=== PATIENT | female | born 2000 | race Caucasian/White ===

== ENCOUNTER 2020-01-07 13:22 | Emergency (ER) | payer SELFPAY ==
--- NOTE | 2020-01-07 13:46 | EDM.PDOC ---
ED HPI GENERAL MEDICAL PROBLEM - General Chief Complaint: Abdominal Pain Stated Complaint: abdominal pain Time Seen by Provider: 01/07/20 13:30 Source of Information: Reports: Patient History Limitations: Reports: No Limitations - History of Present Illness INITIAL COMMENTS - FREE TEXT/NARRATIVE: Patient comes into the emergency department with complaint of lower abdominal discomfort. Patient states that the lower abdominal discomfort started approximately 4 to 5 hours prior to arrival to the emergency department. She describes it as a sharp cramping sensation in the lower abdomen. She states earlier today she did start her period which she normally some intermittent cramping and lower abdominal discomfort however she feels that this discomfort is more significant and severe in nature than normal. Patient also states that she did have sexual intercourse this morning with her boyfriend who she is in a monogamous relationship with. She states that it was not out of the ordinary. Patient states prior to arrival she did try to take a bath and take 4 Tylenol however neither helped her current symptoms. Patient states that if she holds her lower abdomen tight the pain and discomfort is not as severe however she tries to stretch out or move around she states that the pain does intensify. Patient denies any fever, shortness of breath, dizziness, lightheadedness, nausea, vomiting. Patient also denies any history of abdominal disorders or surgery/trauma. Onset: Sudden Quality: Reports: Other Severity: Mild Improves with: Reports: None Worsens with: Reports: None Associated Symptoms: Reports: No Other Symptoms Treatments PUBLIC RELATIONS ANALYST: Reports: Acetaminophen Lower Abdomen Pain Score (Numeric/FACES): 8 - Related Data Allergies Allergy/AdvReac Type Severity Reaction Status Date / Time morphine Allergy Vomiting Verified 01/07/20 13:29 Home Meds: Home Meds . [No Known Home Meds] 01/07/20 [History] Past Medical History Gastrointestinal History: Reports: Cholelithiasis - Past Surgical History HEENT Surgical History: Reports: Adenoidectomy, Myringotomy w Tube(s), Tonsillectomy GI Surgical History: Reports: Cholecystectomy Social & Family History - Tobacco Use Tobacco Use Status *Q: Unknown Ever Used Tobacco ED ROS GENERAL - Review of Systems Review Of Systems: Comprehensive ROS is negative, except as noted in HPI. Constitutional: Reports: No Symptoms HEENT: Reports: No Symptoms Respiratory: Reports: No Symptoms Cardiovascular: Reports: No Symptoms Endocrine: Reports: No Symptoms : Reports: No Symptoms Musculoskeletal: Reports: No Symptoms Skin: Reports: No Symptoms Neurological: Reports: No Symptoms Psychiatric: Reports: No Symptoms Hematologic/Lymphatic: Reports: No Symptoms Immunologic: Reports: No Symptoms ED EXAM, GENERAL - Physical Exam Exam: See Below Exam Limited By: No Limitations General Appearance: Alert, WD/WN, No Apparent Distress Head: Atraumatic, Normocephalic Neck: Normal Inspection, Supple, Non-Tender, Full Range of Motion Respiratory/Chest: No Respiratory Distress, Lungs Clear, Normal Breath Sounds, No Accessory Muscle Use, Chest Non-Tender Cardiovascular: Normal Peripheral Pulses, Regular Rate, Rhythm, No Edema GI/Abdominal: Normal Bowel Sounds, Soft, No Organomegaly, No Mass, Pelvis Stable, Guarding Back Exam: Normal Inspection, Full Range of Motion Extremities: Normal Inspection, Normal Range of Motion, Non-Tender, Normal Capillary Refill Neurological: Alert, Oriented, Normal Gait Psychiatric: Normal Affect, Normal Mood Skin Exam: Warm, Dry, Intact, Normal Color Course - Vital Signs Last Recorded V/S: Last Vital Signs Temp 36.5 C 01/07/20 13:24 Pulse 95 01/07/20 13:24 Resp 18 01/07/20 13:24 BP 116/79 01/07/20 13:24 Pulse Ox 100 01/07/20 13:24 - Orders/Labs/Meds Labs: Laboratory Tests 01/07/20 01/07/20 01/07/20 Range/Units 13:43 13:43 13:51 WBC 12.5 H (4.0-10.0) x10^3/uL RBC 4.72 (4.00-5.50) x10^6/uL Hgb 14.3 (12.0-16.0) g/dL Hct 41.4 (33.0-47.0) % MCV 87.7 (78.0-93.0) fL MCH 30.3 (26.0-32.0) pg MCHC 34.5 (32.0-36.0) g/dL RDW Coeff of Cristi 11.7 (10.0-15.0) % Plt Count 253 (130-400) x10^3/uL Neut % (Auto) 77.9 (50.0-80.0) % Lymph % (Auto) 14.0 L (25.0-50.0) % [place] % (Auto) 7.2 (2.0-11.0) % Eos % (Auto) 0.7 (0.0-4.0) % Baso % (Auto) 0.2 (0.2-1.2) % Sodium (136-145) mmol/L Potassium (3.5-5.1) mmol/L Chloride (98-107) mmol/L Carbon Dioxide (21-32) mmol/L Anion Gap (10-20) mmol/L BUN (7-18) mg/dL Creatinine (0.55-1.02) mg/dL Est Cr Clr Drug Dosing Estimated GFR (MDRD) Glucose (74-106) mg/dL Calcium (8.5-10.1) mg/dL Corrected Calcium (8.5-10.1) mg/dL Total Bilirubin (0.2-1.0) mg/dL AST (15-37) U/L ALT (14-59) U/L Alkaline Phosphatase (46-116) U/L Total Protein (6.4-8.2) g/dL Albumin (3.4-5.0) g/dL Globulin Albumin/Globulin Ratio Urine Color Yellow (YELLOW) Urine Appearance Clear (CLEAR) Urine pH 8.5 H (5.0-8.0) Ur Specific [place] 1.020 Urine Protein Trace H (NEGATIVE) mg/dL Urine Glucose (UA) Negative (NEGATIVE) mg/dL Urine Ketones Negative (NEGATIVE) mg/dL Urine Occult Blood Small H (NEGATIVE) Urine Nitrite Negative (NEGATIVE) Urine Bilirubin Negative (NEGATIVE) Urine Urobilinogen 0.2 (0.2) EU/dL Ur Leukocyte Esterase Negative (NEGATIVE) U Hyaline Cast (Auto) Rare Urine RBC 0-5 (NOT SEEN) /HPF Urine WBC 0-5 (NOT SEEN) /HPF Ur Squamous Epith Cells Rare (NEGATIVE) /HPF Urine Bacteria Not seen (NEGATIVE) /HPF Urine Mucus Few H (NEGATIVE) /LPF Urine HCG, Qual Negative (NEGATIVE) 01/07/20 Range/Units 13:51 WBC (4.0-10.0) x10^3/uL RBC (4.00-5.50) x10^6/uL Hgb (12.0-16.0) g/dL Hct (33.0-47.0) % MCV (78.0-93.0) fL MCH (26.0-32.0) pg MCHC (32.0-36.0) g/dL RDW Coeff of Cristi (10.0-15.0) % Plt Count (130-400) x10^3/uL Neut % (Auto) (50.0-80.0) % Lymph % (Auto) (25.0-50.0) % [place] % (Auto) (2.0-11.0) % Eos % (Auto) (0.0-4.0) % Baso % (Auto) (0.2-1.2) % Sodium 138 (136-145) mmol/L Potassium 3.6 (3.5-5.1) mmol/L Chloride 104 (98-107) mmol/L Carbon Dioxide 27 (21-32) mmol/L Anion Gap 10.6 (10-20) mmol/L BUN 10 (7-18) mg/dL Creatinine 1.0 (0.55-1.02) mg/dL Est Cr Clr Drug Dosing TNP Estimated GFR (MDRD) > 60 Glucose 89 (74-106) mg/dL Calcium 8.8 (8.5-10.1) mg/dL Corrected Calcium 8.88 (8.5-10.1) mg/dL Total Bilirubin 0.5 (0.2-1.0) mg/dL AST 11 L (15-37) U/L ALT 20 (14-59) U/L Alkaline Phosphatase 69 (46-116) U/L Total Protein 7.0 (6.4-8.2) g/dL Albumin 3.9 (3.4-5.0) g/dL Globulin 3.1 Albumin/Globulin Ratio 1.26 Urine Color (YELLOW) Urine Appearance (CLEAR) Urine pH (5.0-8.0) Ur Specific [place] Urine Protein (NEGATIVE) mg/dL Urine Glucose (UA) (NEGATIVE) mg/dL Urine Ketones (NEGATIVE) mg/dL Urine Occult Blood (NEGATIVE) Urine Nitrite (NEGATIVE) Urine Bilirubin (NEGATIVE) Urine Urobilinogen (0.2) EU/dL Ur Leukocyte Esterase (NEGATIVE) U Hyaline Cast (Auto) Urine RBC (NOT SEEN) /HPF Urine WBC (NOT SEEN) /HPF Ur Squamous Epith Cells (NEGATIVE) /HPF Urine Bacteria (NEGATIVE) /HPF Urine Mucus (NEGATIVE) /LPF Urine HCG, Qual (NEGATIVE) Departure - Departure Time of Disposition: 14:45 Disposition: Home, Self-Care 01 Condition: Good Clinical Impression: Severe menstrual cramps - Discharge Information *PRESCRIPTION DRUG MONITORING PROGRAM REVIEWED*: Not Applicable *COPY OF PRESCRIPTION DRUG MONITORING REPORT IN PATIENT PETER: Not Applicable Instructions: Abdominal Pain, Adult, [id number], Dysmenorrhea, [id number] Forms: ED Department Discharge Additional Instructions: 1. rest 2. increase your water intake 3. Continue all at home medications 4. Activity and diet as tolerated 5. Can take over the counter Tylenol for any pain or discomfort 6. Follow up with PCP or return if symptoms continue, return, or progress 7. Call with any questions or concerns 8. Use heating pad over the lower abdominal to help with cramping Sepsis Event Note (ED) - Evaluation Sepsis Screening Result: No Definite Risk - Focused Exam Vital Signs: Vital Signs Temp Pulse Resp BP Pulse Ox 01/07/20 13:24 36.5 C 95 18 116/79 100 - Assessment/Plan Assessment:: 1. abdominal pain 2. menstrual cramps Plan: 1. Labs completed in the ER. Results reviewed with the patient 2. CT scan completed in the ER. Results reviewed with the patient 3. UA/UC completed in ER 4. Urine completed 5. Zofran offered in the ER to help with any nausea. Pt denies needing any right now. 6. Toradol IM given to help with pain and discomfort 7. Patient and nursing staff was updated regarding the plan of care 8. Patient and family are agreeable to the above plan of care 9. All questions and concerns were addressed with the patient and family prior to discharge
[2020-01-07 14:15] LABS: CHLORIDE,CL 104 mmol/L (98-107); SODIUM,NA 138 mmol/L (136-145)
[2020-01-07 14:16] LABS: ANION GAP 10.6 mmol/L (10-20)
--- NOTE | 2020-01-07 14:34 | CT ---
[id number] CT/CT Abdomen Pelvis WO IV EXAM: CT Abdomen Pelvis WO IV CLINICAL DATA: ABDOMEN PAIN,PELVIC PAIN. COMPARISON STUDY: None. FINDINGS: Lung bases are clear. The gallbladder is surgically absent. The liver, spleen, pancreas, adrenal glands and kidneys are unremarkable. No bowel obstruction or inflammation. The appendix is visualized and appears normal. No lymphadenopathy, free fluid, or pneumoperitoneum. Small amount of free fluid within the pelvis likely physiologic in nature. The urinary bladder is underdistended. Scattered changes of spondylosis the spine. No fracture or osseous lesion. IMPRESSION: No acute CT findings within the abdomen or pelvis to explain the patient's symptoms. Candido Yoo DO 01/07/20 [id number] Thank you for allowing us to participate in the care of your patient.
[2020-01-07] MEDS ORDERED: Ketorolac 30 MG/ML SDV IM ONE (14:35)
== END 2020-01-07 14:50 | disposition home or self-care (01) ==
LOC: VM.ED 13:22
DX: N94.6 Dysmenorrhea, unspecified (principal); Z88.5 Allergy status to narcotic agent; Z90.49 Acquired absence of other specified parts of digestive tract
CPT/HCPCS: 36415; 74176; 80053; 81001; 81025; 85025; 96372; 99283; 99284-25; J1885

== ENCOUNTER 2020-03-01 20:13 | Emergency (ER) | payer MEDICAID ==
[2020-03-01] MEDS ORDERED: Bupivacaine 0.25% 30 ML SDV INJECT PRN (20:26)
[2020-03-01] MEDS ORDERED: Take Home: Amoxicillin 875 MG Tab, 2 Tab Pack PO ONE (20:26)
[2020-03-01] MEDS ORDERED: Take Home: Acetaminophen/HYDROcodone 325-5 MG, 5 Tab Pack PO ONE (20:27)
--- NOTE | 2020-03-01 20:45 | EDM.PDOC ---
ED HPI GENERAL MEDICAL PROBLEM - General Stated Complaint: TOOTH PAIN Time Seen by Provider: 03/01/20 20:23 Source of Information: Reports: Patient - History of Present Illness INITIAL COMMENTS - FREE TEXT/NARRATIVE: Angelica is a 20 y/o female who comes to the ER with dental pain. Patient reports that she woke up this AM with pain in her left lower molar region. No fever. Has not taken anything for pain or tried to call a dentist today. She is unsure when her tooth broke. She is very anxious about having to go to the dentist. - Related Data Allergies Allergy/AdvReac Type Severity Reaction Status Date / Time morphine Allergy Vomiting Verified 01/07/20 13:29 Home Meds: Home Meds Amoxicillin 875 mg PO BID 6 Days #10 tablet 03/01/20 [Rx] Lidocaine 2% [Xylocaine 2% Viscous] 15 ml PO ASDIRECTED 7 Days #15 ml 03/01/20 [Rx] Past Medical History Gastrointestinal History: Reports: Cholelithiasis - Past Surgical History HEENT Surgical History: Reports: Adenoidectomy, Myringotomy w Tube(s), Tonsillectomy GI Surgical History: Reports: Cholecystectomy Review of Systems - Review of Systems Review Of Systems: See Below Constitutional: Reports: No Symptoms Eyes: Reports: No Symptoms Ears: Reports: No Symptoms Nose: Reports: No Symptoms Mouth/Throat: Reports: Pain Respiratory: Reports: No Symptoms Cardiovascular: Reports: No Symptoms GI/Abdominal: Reports: No Symptoms Genitourinary: Reports: No Symptoms Musculoskeletal: Reports: No Symptoms Skin: Reports: No Symptoms Neurological: Reports: No Symptoms Psychiatric: Reports: No Symptoms ED EXAM, GENERAL - Physical Exam Exam: See Below General Appearance: Alert, WD/WN, No Apparent Distress (Adult female, appears to be in pain.) Eye Exam: Bilateral Eye: PERRL Ears: Hearing Grossly Normal Nose: Normal Inspection, Normal Mucosa Throat/Mouth: Normal Lips, Normal Voice, Other (Tooth number 18 is broken and tender to touch, no abscess noted) Head: Atraumatic, Normocephalic Neck: Normal Inspection Respiratory/Chest: No Respiratory Distress GI/Abdominal: Soft (Female) Exam: Deferred Rectal (Female) Exam: Deferred Extremities: Normal Inspection, Normal Range of Motion, Normal Capillary Refill Neurological: Alert, Oriented, CN II-XII Intact, Normal Gait Psychiatric: Normal Affect, Normal Mood Skin Exam: Warm, Dry, Intact, Normal Color Lymphatic: No Adenopathy Course - Vital Signs Text/Narrative:: 2022 The patient was seen by the ANALYTICAL LABORATORY TECHNICIAN. Dental block was done. See Procedure note below. Questions were answered. She was given discharge instructions and left the ER in stable condition. PROCEDURE NOTE: DENTAL BLOCK Consent for operation or procedure: Risks and benefits discussed with patient and consent obtained. Risks include facial paralysis, hematoma, and trismus (spasm of the jaw muscle). Benefits include pain control. Bupivicaine 0.25%- 4 ml The distribution of the inferior alveolar nerve was identified. Bupivicaine was injected into that region. A short time later adequate analgesia was obtained. Estimated Blood Loss: minimal Complications: The patient tolerated the procedure well without complications. - Orders/Labs/Meds Orders: Active Orders 24 hr Category Date Time Status Bupivacaine 0.25% [Marcaine 0.25%] Med 03/01/20 20:26 Ordered 30 ml INJECT ASDIRECTED PRN Medication Orders Bupivacaine HCl (Marcaine 0.25%) 30 ml INJECT ASDIRECTED PRN PRN Reason: Other Meds: Medications Generic Name Dose Route Start Last Admin Trade Name Freq PRN Reason Stop Dose Admin Bupivacaine HCl 30 ml 03/01/20 20:26 Marcaine 0.25% INJECT ASDIRECTED PRN Other Discontinued Medications Generic Name Dose Route Start Last Admin Trade Name Freq PRN Reason Stop Dose Admin Hydrocodone Bitart/Acetaminophen 2 packet 03/01/20 20:27 Take Home: Acetam/Hydrocodon 325-5 Mg, 5 Pack PO 03/01/20 20:28 ONETIME ONE Amoxicillin 2 packet 03/01/20 20:26 Take Home: Amoxicillin 875 Mg Tab, 2 Tab Pack PO 03/01/20 20:27 ONETIME ONE Departure - Departure Time of Disposition: 20:45 Disposition: 20 Condition: Good Clinical Impression: Pain, dental Broken tooth Qualifiers: Encounter type: initial encounter Fracture type: closed Qualified Code(s): S02.5XXA - Fracture of tooth (traumatic), initial encounter for closed fracture - Discharge Information Prescriptions: Amoxicillin 875 mg PO BID 6 Days #10 tablet Lidocaine 2% [Xylocaine 2% Viscous] 15 ml PO ASDIRECTED 7 Days #15 ml Instructions: Acute Pain, Adult, Dental Extraction, Care After, [id number] - My Orders Last 24 Hours: My Active Orders 03/01/20 20:26 Bupivacaine 0.25% [Marcaine 0.25%] 30 ml INJECT ASDIRECTED PRN - Assessment/Plan Last 24 Hours: My Active Orders 03/01/20 20:26 Bupivacaine 0.25% [Marcaine 0.25%] 30 ml INJECT ASDIRECTED PRN Assessment:: 1)Dental Pain 2)Broken Tooth Plan: -Amoxicillin 875mg oral twice daily x 7 days #2 (ER)#12 (Rx) -Hydrocodone/APAP 5-325mg 1-2 tablets oral every 4-6 hours as needed for severe pain #10(ER) -Ibuprofen 200mg 4 tablets oral every 8 hours (Use over the counter meds) -Viscous Lidocaine 2%-Use a small amount to gumline as needed #15ml(ER) -Warm or cool compresses as needed -Call to make a dental exam as soon as possible -Return to the ER as needed
== END 2020-03-01 21:05 | disposition home or self-care (01) ==
LOC: VM.ED 20:13
DX: K03.81 Cracked tooth (principal); Z88.5 Allergy status to narcotic agent
CPT/HCPCS: 64400; 99282; A9270; 99283

== ENCOUNTER 2020-03-05 20:06 | Emergency (ER) | payer SELFPAY ==
[2020-03-05] MEDS: Take Home: Acetaminophen/HYDROcodone 325-5 MG, 5 Tab Pack PO ONE (20:48)
--- NOTE | 2020-03-05 23:29 | EDM.PDOC ---
ED HPI GENERAL MEDICAL PROBLEM - General Chief Complaint: ENT Problem Stated Complaint: DENTAL PAIN Time Seen by Provider: 03/05/20 20:35 Source of Information: Reports: Patient History Limitations: Reports: No Limitations - History of Present Illness INITIAL COMMENTS - FREE TEXT/NARRATIVE: PtTahmina presents to ER with complaints of L lower dental pain. She states that she went to the dentist today and was told she needs to have several teeth pulled. She was seen in ER several days ago and seen by Justa Lester NP who started the patient on antibiotics and hydrocodone. She is still on the augmentin and is out of hydrocodone. She has not attempted to have her PCP or dentist fill her hydrocodone. Denies any neck swelling. No problems swallowing. Denies any fever or chills. No chest pain or shortness of breath. 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 Pain Score (Numeric/FACES): 10 - Related Data Allergies Allergy/AdvReac Type Severity Reaction Status Date / Time morphine Allergy Vomiting Verified 03/01/20 21:43 Home Meds: Home Meds Amoxicillin 875 mg PO BID 6 Days #10 tablet 03/01/20 [Rx] Past Medical History Gastrointestinal History: Reports: Cholelithiasis - Past Surgical History HEENT Surgical History: Reports: Adenoidectomy, Myringotomy w Tube(s), Tonsillectomy GI Surgical History: Reports: Cholecystectomy Social & Family History - Tobacco Use Tobacco Use Status *Q: Current Every Day Tobacco User Years of Tobacco use: 5 Packs/Tins Daily: 1 ED ROS GENERAL - Review of Systems Review Of Systems: Comprehensive ROS is negative, except as noted in HPI. ED EXAM, GENERAL - Physical Exam Exam: See Below Exam Limited By: No Limitations General Appearance: Alert, WD/WN, No Apparent Distress Throat/Mouth: Normal Inspection, Normal Lips, Other (Poor dentition. Numerous decayed/fractured teeth noted. No obvious abscess noted. Mild anterior cervical adenopathy.) Head: Atraumatic, Normocephalic Neck: Lymphadenopathy (L), Lymphadenopathy (R) Skin Exam: Warm, Dry, Intact, Normal Color Course - Vital Signs Last Recorded V/S: Last Vital Signs Temp 36.8 C 03/05/20 20:10 Pulse 96 12/15/20 20:10 Resp 16 03/05/20 20:10 BP 126/80 03/05/20 20:10 Pulse Ox 97 03/05/20 20:10 - Orders/Labs/Meds Meds: Medications Discontinued Medications Generic Name Dose Route Start Last Admin Trade Name Anisha PRN Reason Stop Dose Admin Hydrocodone Bitart/Acetaminophen 1 packet 03/05/20 20:42 03/05/20 20:48 Take Home: Acetam/Hydrocodon 325-5 Mg, 5 Pack PO 03/05/20 20:43 1 packet ONETIME ONE Administration Departure - Departure Time of Disposition: 21:00 Disposition: Home, Self-Care 01 Clinical Impression: Pain due to dental caries - Discharge Information Instructions: Acetaminophen; Hydrocodone tablets or capsules, Dental Abscess, [id number], Benzocaine mouth gel, ointment, solution, or dental paste Referrals: PCP,None [Primary Care Provider] - Forms: ED Department Discharge Additional Instructions: Home to rest. Albert Lea 5/325mg 1 every 6 hours as needed for pain Ibuprofen 200 mg 4 tabs every 8 hours as needed for pain Follow-up tomorrow with your PCP or dentist if you need more prescription pain medication. Sepsis Event Note (ED) - Evaluation Sepsis Screening Result: No Definite Risk - Focused Exam Vital Signs: Vital Signs Temp Pulse Resp BP Pulse Ox 03/05/20 20:10 36.8 C 96 16 126/80 97 - Problem List Review Problem List Initiated/Reviewed/Updated: Yes - Assessment/Plan Plan: Pt. was given a 5 pack or norco 5/325mg. She can take one every 6 hours in addition to ibuprofen. Advised to follow-up with dentist/PCP for further prescription pain medication. All questions were answered.
== END 2020-03-05 20:57 | disposition home or self-care (01) ==
LOC: VM.ED 20:19
DX: K02.9 Dental caries, unspecified (principal); R59.0 Localized enlarged lymph nodes; F17.210 Nicotine dependence, cigarettes, uncomplicated; Z88.5 Allergy status to narcotic agent
CPT/HCPCS: 99282; 99283; A9270-GY

== ENCOUNTER 2024-07-08 12:43 | Emergency (ER) | payer SELFPAY ==
[2024-07-08] MEDS ORDERED: Sodium Chloride 0.9% 10 ML Syringe FLUSH PRN (12:49)
[2024-07-08 13:08] LABS: BASOPHILS PERCENT AUTO 0.3 % (0.2-1.2); EOSINOPHILS ABSOLUTE AUTO 0.1 x10^3/uL (0.0-0.5); EOSINOPHILS PERCENT AUTO 0.9 % (0.0-4.0); HEMATOCRIT 43.1 % (33.0-47.0); HEMOGLOBIN 15.2 g/dL (12.0-16.0); IMMATURE GRAN ABSOLUTE AUTO 0.02 x10^3/uL (0.00-0.07); LYMPHOCYTES ABSOLUTE AUTO 2.6 x10^3/uL (1.0-4.8); LYMPHOCYTES PERCENT AUTO 33.7 % (25.0-50.0); MEAN CORPUSCULAR HEMOGLOBIN 29.7 pg (26.0-32.0); MEAN CORPUSCULAR HGB CONC 35.3 g/dL (32.0-36.0); MEAN CORPUSCULAR VOLUME 84.3 fL (78.0-93.0); MONOCYTES ABSOLUTE AUTO 0.6 x10^3/uL (0.0-0.8); MONOCYTES PERCENT AUTO 7.9 % (2.0-11.0); NEUTROPHILS ABSOLUTE AUTO 4.4 x10^3/uL (1.8-7.7); NEUTROPHILS PERCENT AUTO 56.9 % (50.0-80.0); PLATELET COUNT,PLT 239 x10^3/uL (130-400); RED BLOOD CELL COUNT 5.11 x10^6/uL (4.00-5.50); WHITE BLOOD CELL COUNT,WBC 7.7 x10^3/uL (4.0-10.0)
[2024-07-08 13:13] LABS: APPEARANCE,URINE CLOUDY (CLEAR); BILIRUBIN,URINE NEGATIVE (NEGATIVE); COLOR,URINE YELLOW (YELLOW); GLUCOSE,URINE NEGATIVE (NEGATIVE); KETONES,URINE NEGATIVE (NEGATIVE); LEUKOCYTE ESTERASE,URINE LARGE (NEGATIVE); NITRITE,URINE NEGATIVE (NEGATIVE); OCCULT BLOOD,URINE SMALL (NEGATIVE); PH,URINE 7.5 (5.0-8.0); PROTEIN,URINE 30 mg/dL (NEGATIVE); UROBILINOGEN,URINE 0.2 EU/dL (0.2)
[2024-07-08 13:27] LABS: BACTERIA,URINE RARE /HPF (NOT SEEN); MUCUS,URINE NOT SEEN /LPF (NOT SEEN); RBC,URINE NOT SEEN /HPF (NOT SEEN); SQUAMOUS EPITHELIAL CELLS,UR RARE /HPF (NOT SEEN); WBC,URINE >100 /HPF (NOT SEEN)
[2024-07-08 13:29] LABS: A/G RATIO 0.97; ALANINE AMINOTRANSFERASE,ALT 18 U/L (14-59); ALBUMIN 3.4 g/dL (3.4-5.0); ALKALINE PHOSPHATASE 77 U/L (46-116); BILIRUBIN TOTAL 0.3 mg/dL (0.2-1.0); BLOOD UREA NITROGEN,BUN 6 mg/dL (7-18); CALCIUM 8.6 mg/dL (8.5-10.1); CARBON DIOXIDE,CO2 26 mmol/L (21-32); CHLORIDE,CL 101 mmol/L (98-107); CREATININE 0.7 mg/dL (0.55-1.02); GLUCOSE RANDOM 81 mg/dL (70-99); POTASSIUM,K 3.8 mmol/L (3.5-5.1); PROTEIN TOTAL,TP 6.9 g/dL (6.4-8.2); SODIUM,NA 137 mmol/L (136-145)
[2024-07-08 13:30] LABS: ANION GAP 13.8 mmol/L (5-15); ESTIMATED GFR 123 mL/min (>=60)
[2024-07-08 13:38] LABS: ASPARTATE AMNIOTRANSFERASE,AST 11 U/L (15-37)
[2024-07-08] MEDS: cefTRIAXone 2 GM Vial IVPUSH ONE (14:14)
[2024-07-08] MEDS ORDERED: Take Home: Cephalexin 500 MG Cap, 6 Cap Pack PO ONE (14:23)
== END 2024-07-08 14:38 | disposition home or self-care (01) ==
LOC: VM.ED 12:43
DX: O23.41 Unspecified infection of urinary tract in pregnancy, first trimester (principal); Z3A.11 11 weeks gestation of pregnancy; Z88.5 Allergy status to narcotic agent; Z88.8 Allergy status to other drugs, medicaments and biological substances; Z79.899 Other long term (current) drug therapy; Z90.49 Acquired absence of other specified parts of digestive tract
CPT/HCPCS: 80053; 81001; 85025; 87086; 87088; 87186; 96374; 99284; 99284-25; J0696

== ENCOUNTER 2025-02-13 20:26 | Emergency (ER) | payer SELFPAY ==
[2025-02-13] MEDS ORDERED: Sodium Chloride 0.9% 10 ML Syringe FLUSH PRN (21:03)
[2025-02-13 21:29] LABS: BASOPHILS ABSOLUTE AUTO 0.0 x10^3/uL (0.0-0.2); BASOPHILS PERCENT AUTO 0.3 % (0.2-1.2); EOSINOPHILS ABSOLUTE AUTO 0.1 x10^3/uL (0.0-0.5); EOSINOPHILS PERCENT AUTO 1.0 % (0.0-4.0); IMMATURE GRAN ABSOLUTE AUTO 0.01 x10^3/uL (0.00-0.07); IMMATURE GRAN PERCENT AUTO 0.10 % (0.00-0.43); LYMPHOCYTES ABSOLUTE AUTO 2.1 x10^3/uL (1.0-4.8); LYMPHOCYTES PERCENT AUTO 20.2 % (25.0-50.0); MONOCYTES ABSOLUTE AUTO 1.2 x10^3/uL (0.0-0.8); MONOCYTES PERCENT AUTO 11.2 % (2.0-11.0); NEUTROPHILS ABSOLUTE AUTO 6.9 x10^3/uL (1.8-7.7); NEUTROPHILS PERCENT AUTO 67.2 % (50.0-80.0); PLATELET COUNT,PLT 282 x10^3/uL (130-400); RED BLOOD CELL COUNT 4.32 x10^6/uL (4.00-5.50); WHITE BLOOD CELL COUNT,WBC 10.3 x10^3/uL (4.0-10.0)
[2025-02-13 21:30] LABS: APPEARANCE,URINE CLEAR (CLEAR); GLUCOSE,URINE NEGATIVE (NEGATIVE); OCCULT BLOOD,URINE SMALL (NEGATIVE)
[2025-02-13 21:56] LABS: SQUAMOUS EPITHELIAL CELLS,UR OCCASIONAL /HPF (NOT SEEN)
[2025-02-13 22:03] LABS: A/G RATIO 0.63; ALANINE AMINOTRANSFERASE,ALT 10 U/L (14-59); BILIRUBIN TOTAL 0.4 mg/dL (0.2-1.0); BLOOD UREA NITROGEN,BUN 6 mg/dL (7-18); CARBON DIOXIDE,CO2 25 mmol/L (21-32); CHLORIDE,CL 99 mmol/L (98-107); CREATININE 0.8 mg/dL (0.55-1.02); GLUCOSE RANDOM 103 mg/dL (70-99); POTASSIUM,K 3.6 mmol/L (3.5-5.1); PROTEIN TOTAL,TP 7.0 g/dL (6.4-8.2); SODIUM,NA 134 mmol/L (136-145)
[2025-02-13 22:05] LABS: ESTIMATED GFR 104 mL/min (>=60)
[2025-02-13 22:21] LABS: ASPARTATE AMNIOTRANSFERASE,AST < 10 U/L (15-37)
[2025-02-13] MEDS: Iopamidol 612 MG/ML 100 ML Bottle IVPUSH ONE (23:00)
== END 2025-02-14 00:52 | disposition home or self-care (01) ==
LOC: VM.ED 20:26
DX: O99.893 Other specified diseases and conditions complicating puerperium (principal); R10.30 Lower abdominal pain, unspecified; Z88.5 Allergy status to narcotic agent; Z90.49 Acquired absence of other specified parts of digestive tract
CPT/HCPCS: 36415; 74177; 80053; 81001; 83605; 85025; 86140; 99284; Q9967